=== PATIENT | female | born 1950 | race Two or more races ===

== ENCOUNTER 2022-06-25 11:23 | Outpatient (CLI) | payer OTHER | END 2022-06-25 11:25 | disposition home or self-care (01) | LOC: NUCLEAR 11:23 | PROVIDERS: ATTEND Neurological Surgery | DX: M81.0 Age-related osteoporosis without current pathological fracture (principal) ==

== ENCOUNTER 2022-08-17 09:31 | Outpatient (CLI) | payer OTHER | END 2022-08-17 09:38 | disposition home or self-care (01) | LOC: LAB 09:31 | PROVIDERS: ATTEND Orthopaedic Surgery | DX: D64.9 Anemia, unspecified (principal); E88.9 Metabolic disorder, unspecified; D68.9 Coagulation defect, unspecified; N39.0 Urinary tract infection, site not specified; A49.02 Methicillin resistant Staphylococcus aureus infection, unspecified site; I49.9 Cardiac arrhythmia, unspecified; M76.821 Posterior tibial tendinitis, right leg ==